=== PATIENT | female | born 1960 | race Caucasian/White ===

== ENCOUNTER → 2020-06-19 | Outpatient (CLI) | payer BC, OTHER ==
[~2020-06-19] MED LIST: ALPRAZOLAM ER1 MG PO; AMOXICILLIN 50500 MG PO; ASPIRIN325 PO; AZOR 10-40 MG1 EACH; AZOR 10-40 MG1 EACH PO; BYSTOLIC10 MG PO; FUROSEMIDE 40 M40 MG PO; LEVOTHYROXIN0.125 M1 PO; LIPITOR80 MG PO; LYRICA200 MG PO; NORCO 5-325 TA1 EACH; POTASSIUM20 PO; PROZAC 20 MG20 MG PO; RANITIDINE; TRAMADOL 50 MG50 MG; VICODIN 5-5001 EACH PO; ZANTAC 150MG T150 M1 PO
== END ==
LOC: SJCVCIMAG 06-14 10:03
PROVIDERS: ATTEND Internal Medicine Cardiovascular Disease
DX: I65.23 Occlusion and stenosis of bilateral carotid arteries (principal); I44.7 Left bundle-branch block, unspecified; I25.10 Atherosclerotic heart disease of native coronary artery without angina pectoris; I25.5 Ischemic cardiomyopathy; Z79.899 Other long term (current) drug therapy; Z87.891 Personal history of nicotine dependence

== ENCOUNTER → 2021-01-29 | Outpatient (CLI) | payer BC, OTHER | LOC: SJCVCIMAG 06:57 | PROVIDERS: ATTEND Internal Medicine Cardiovascular Disease | DX: I65.23 Occlusion and stenosis of bilateral carotid arteries (principal); R55 Syncope and collapse ==

== ENCOUNTER → 2021-05-06 | Outpatient (CLI) | payer BC, OTHER | LOC: SJCVCIMAG 08:20 | PROVIDERS: ATTEND Internal Medicine Cardiovascular Disease | DX: I34.0 Nonrheumatic mitral (valve) insufficiency (principal); I25.10 Atherosclerotic heart disease of native coronary artery without angina pectoris; I65.23 Occlusion and stenosis of bilateral carotid arteries; I13.0 Hypertensive heart and chronic kidney disease with heart failure and stage 1 through stage 4 chronic kidney disease, or unspecified chronic kidney disease; N18.30 Chronic kidney disease, stage 3 unspecified; I50.22 Chronic systolic (congestive) heart failure; I25.5 Ischemic cardiomyopathy; E78.00 Pure hypercholesterolemia, unspecified; G47.33 Obstructive sleep apnea (adult) (pediatric); Z82.49 Family history of ischemic heart disease and other diseases of the circulatory system; Z95.810 Presence of automatic (implantable) cardiac defibrillator; Z72.89 Other problems related to lifestyle; Z87.891 Personal history of nicotine dependence ==